=== PATIENT | male | born 1960 | race Caucasian/White ===

== ENCOUNTER 2016-11-04 20:37 | Inpatient (IN) | payer OTHER ==
[2016-11-04] MEDS ORDERED: NORMAL SALINE 1000 ML 1,000 ML IV ONE (21:02)
[2016-11-04] MEDS ORDERED: ONDANSETRON HCL INJ/PF 4 MG/2 ML SDV IV ONE (21:02)
[2016-11-04] MEDS ORDERED: MECLIZINE HCL 25 MG TABLET PO ONE (21:59)
[2016-11-04] MEDS ORDERED: DIAZEPAM INJ 10 MG/2 ML DISP.SYRIN IV ONE (21:59)
--- NOTE | 2016-11-04 22:01 | ER Document Report ---
ED General - General Chief Complaint: Dizziness Stated Complaint: VOMITING,DIZZINESS Time Seen by Provider: 11/04/16 21:01 Notes: Patient is a 56-year-old male without past medical history who presents with acute onset of vertigo. Patient reports that this started at approximately 3 PM while he was golfing. He states that it immediately felt like he was intoxicated, unable to walk a straight line and states he was fell when attempting to walk. He has no history of similar symptoms in the past. States only that seems to even remotely improve his symptoms still lie down and close his eyes but he still feels vertigo during that time. States any attempt at movement or opening his eyes worsens the symptoms. He denies any headache, neck pain, weakness, numbness, or altered mental status. Does not use any form of medication and denies any alcohol or drug use today. He is visiting from out of town has been unable to see his primary care doctor regarding today's concerns. - Related Data Allergies/Adverse Reactions: No Known Allergies Allergy (Unverified 11/04/16 20:41) Past Medical History - General Information source: Patient - Social History Smoking Status: Never Smoker Frequency of alcohol use: None Drug Abuse: None Lives with: Spouse/Significant other Family History: Reviewed & Not Pertinent Renal/ Medical History: Denies: Hx Peritoneal Dialysis Review of Systems - Review of Systems Notes: Constitutional: Negative for fever. HENT: Negative for sore throat. Eyes: Negative for visual changes. Cardiovascular: Negative for chest pain. Respiratory: Negative for shortness of breath. Gastrointestinal: Positive for vomiting Genitourinary: Negative for dysuria. Musculoskeletal: Negative for back pain. Skin: Negative for rash. Neurological: Positive for vertigo 10 point ROS negative except as marked above and in HPI. Physical Exam - Vital signs Vitals: Resp 18 11/04/16 21:05 Interpretation: Normal Notes: PHYSICAL EXAMINATION: GENERAL: Appears uncomfortable but no acute distress HEAD: Atraumatic, normocephalic. EYES: Pupils equal round and reactive to light, extraocular movements intact, sclera anicteric, conjunctiva are normal. ENT: nares patent, oropharynx clear without exudates. Moist mucous membranes. NECK: Normal range of motion, supple without lymphadenopathy LUNGS: Breath sounds clear to auscultation bilaterally and equal. No wheezes rales or rhonchi. HEART: Regular rate and rhythm without murmurs ABDOMEN: Soft, nontender, normoactive bowel sounds. No guarding, no rebound. No masses appreciated. EXTREMITIES: Normal range of motion, no pitting or edema. No cyanosis. NEUROLOGICAL: Face symmetric. Tongue protrudes midline. Extraocular motions intact. No nystagmus. Head impulse testing is normal. Test of skew normal. Pupils are 2 mm and equally reactive. Normal speech, very unsteady gait. 5 out of 5 strength in both the distal and proximal upper and lower extremities bilaterally. Sensation is grossly intact throughout. Finger to nose testing normal. Pronator drift normal. PSYCH: Normal mood, normal affect. SKIN: Warm, Dry, normal turgor, no rashes or lesions noted. Course - Re-evaluation Re-evalutation: 11/04/16 22:00 Presentation of vertigo that appears concerning for a possible cerebellar stroke. Although patient's finger to nose and heel to lester testing is normal he has a very ataxic gait, unable to ambulate in a straight line and almost fell during ambulation testing and would have done so had a not been holding him. His HEENT exam likewise does not show any abnormality during head impulse testing which is again concerning for possible cerebellar stroke. He has no significant clinical history to suggest Mnire's disease, an acute vestibular neuritis, has not had any improvement with meclizine on low-dose Valium. I do think the patient needs an MRI to further evaluate. I will consult with neurology at [facility] and see if they think it is reasonable to wait until the morning to obtain MRI here at this hospital 11/05/16 00:16 I spoke with the neurologist on-call at [facility] who states that there is no acute management difference between obtaining an MRI at this time in transfer versus waiting until the morning. He has recommended routine stroke management. I discussed with Dr. Ramírez who is in agreement. The patient is comfortable with this plan. - Vital Signs Vital signs: Temp Pulse Resp BP Pulse Ox 75 16 145/78 H 98 11/05/16 00:18 11/05/16 00:18 11/05/16 00:18 11/05/16 00:18 - Laboratory Result Diagrams: 11/04/16 22:18 11/04/16 22:18 Laboratory results interpreted by me: 11/04/16 11/04/16 22:18 22:18 MCH 33.7 H MCHC 36.6 H Glucose 115 H - Diagnostic Test Radiology reviewed: Image reviewed, Reports reviewed Radiology results interpreted by me: 11/05/16 02:36 CT head: No acute intercranial bleed - EKG Interpretation by Me Additional EKG results interpreted by me: 11/05/16 02:36 Normal sinus rhythm. Rate 67. No ST elevations or depressions. QTC is 418. Discharge - Discharge Clinical Impression: Vertigo Nausea and vomiting Qualifiers: Vomiting type: unspecified Vomiting Intractability: non-intractable Qualified Code(s): R11.2 - Nausea with vomiting, unspecified Condition: Fair Disposition: ADMITTED OBSERVATION Admitting Provider: Hospitalist [facility] Admitted: [facility]
[2016-11-04 22:33] LABS: ABSOLUTE BASOPHILS # (AUTO) 0.1 10^3/uL (0.0-0.2); ABSOLUTE EOSINOPHILS # (AUTO) 0.1 10^3/uL (0.0-0.6); ABSOLUTE MONOCYTES (AUTO) 0.8 10^3/uL (0.1-1.4); ABSOLUTE NEUT (AUTO) 5.9 10^3/uL (1.7-8.2); BASOPHILS % (AUTO) 0.7 % (0-2); EOSINOPHILS % (AUTO) 1.5 % (0-6); HEMATOCRIT 43.2 % (37.9-51.0); HEMOGLOBIN 15.8 g/dL (13.5-17.0); LYMPHOCYTES % (AUTO) 22.6 % (13-45); MEAN CORPUSCULAR HEMOGLOBIN 33.7 pg (27.0-33.4); MEAN CORPUSCULAR HGB CONC 36.6 g/dL (32.0-36.0); MEAN CORPUSCULAR VOLUME 92 fl (80-97); MONOCYTES % (AUTO) 8.5 % (3-13); RED BLOOD COUNT 4.69 10^6/uL (4.35-5.55); RED CELL DISTRIBUTION WIDTH 12.4 % (11.5-14.0); SEGMENTED NEUTROPHILS % (AUTO) 66.7 % (42-78); WHITE BLOOD COUNT 8.9 10^3/uL (4.0-10.5)
[2016-11-04 22:49] LABS: ANION GAP 10 (5-19); BLOOD UREA NITROGEN 14 mg/dL (7-20); CALCIUM 9.7 mg/dL (8.4-10.2); CARBON DIOXIDE 23 mmol/L (22-30); CHLORIDE 107 mmol/L (98-107); CREATININE RESULT 0.79 mg/dL (0.52-1.25); GLUCOSE 115 mg/dL (75-110); HGB HCT DIFFERENCE 4.2; POTASSIUM 3.8 mmol/L (3.6-5.0)
[2016-11-05] MEDS ORDERED: ASPIRIN 81 MG TABLET, CHEWABLE PO ONE (00:17)
[2016-11-05] MEDS ORDERED: ATORVASTATIN CALCIUM 80 MG TABLET PO ONE (00:17)
--- NOTE | 2016-11-05 02:31 | RADIOLOGY REPORT (SQ) ---
EXAM DESCRIPTION: CT HEAD WITHOUT COMPLETED DATE/TIME: 11/05/2016 2:16 am REASON FOR STUDY: ataxia , dizzy and nausea since noon. COMPARISON: None. TECHNIQUE: Axial images acquired through the brain without intravenous contrast. Images reviewed wi th bone, brain and subdural windows. Images stored on PACS. All CT scanners at this facility use dose modulation, iterative reconstruction, and/or weight based d osing when appropriate to reduce radiation dose to as low as reasonably achievable (ALARA). [facility]: Dose Right [facility]: CareDose [facility]: Dose Right [facility]: Teradose 4D [facility]: PresenceLearning RADIATION DOSE: Up-to-date CT equipment and radiation dose reduction techniques were employed. CTDIv ol: 64.6 mGy. DLP: 1163 mGy-cm. mGy. LIMITATIONS: None. FINDINGS: VENTRICLES: Normal size and contour. CEREBRUM: No mass effect. No hemorrhage. No midline shift. No evidence for acute infarction. Cindi l murcia/white matter differentiation. CEREBELLUM: No mass effect. No hemorrhage. No alteration of density. No evidence for acute infarct ion. EXTRAAXIAL SPACES: No fluid collections. ORBITS AND GLOBE: Symmetrical contour of the globes. CALVARIUM: No depressed fracture. PARANASAL SINUSES: Mild mucosal thickening in the bilateral maxillary sinuses. SOFT TISSUES: No hematoma. IMPRESSION: NO ACUTE INTRACRANIAL IMAGING FINDINGS. EVIDENCE OF ACUTE STROKE: NO. COMMENT: Quality ID # [id number]: Final reports with documentation of one or more dose reduction techniques (e.g., Automated exposure control, adjustment of the mA and/or kV according to patient size, use of iterative reconstruction technique) TECHNICAL DOCUMENTATION: JOB ID: [id number] [employer]- All Rights Reserved
[2016-11-05 05:27] LABS: ABSOLUTE BASOPHILS # (AUTO) 0.1 10^3/uL (0.0-0.2); ABSOLUTE EOSINOPHILS # (AUTO) 0.2 10^3/uL (0.0-0.6); ABSOLUTE LYMPHOCYTES (AUTO) 2.5 10^3/uL (0.5-4.7); ABSOLUTE MONOCYTES (AUTO) 0.7 10^3/uL (0.1-1.4); EOSINOPHILS % (AUTO) 2.6 % (0-6); HEMATOCRIT 41.4 % (37.9-51.0); HGB HCT DIFFERENCE 3.6; LYMPHOCYTES % (AUTO) 33.5 % (13-45); MEAN CORPUSCULAR HEMOGLOBIN 33.8 pg (27.0-33.4); MEAN CORPUSCULAR HGB CONC 36.3 g/dL (32.0-36.0); MEAN CORPUSCULAR VOLUME 93 fl (80-97); MONOCYTES % (AUTO) 9.3 % (3-13); RED BLOOD COUNT 4.46 10^6/uL (4.35-5.55); RED CELL DISTRIBUTION WIDTH 12.7 % (11.5-14.0); SEGMENTED NEUTROPHILS % (AUTO) 53.6 % (42-78); WHITE BLOOD COUNT 7.4 10^3/uL (4.0-10.5)
[2016-11-05 05:43] LABS: CHOLESTEROL 170.55 mg/dL (0-200); Direct HDL 39 mg/dL (>40); TRIGLYCERIDES 154 mg/dL (<150)
[2016-11-05] MEDS: HEPARIN SOD (PORCINE) 5,000 UNIT/ML 1 ML SYRINGE SUBCUT SCH ×2 (05:44→13:57)
[2016-11-05 05:54] LABS: DIRECT LDL 98 mg/dL (<100)
[2016-11-05 05:58] LABS: VLDL CHOLESTEROL 30.8 mg/dL (10-31)
--- NOTE | 2016-11-05 07:18 | PDOC H&P ---
History of Present Illness Admission Date/PCP: 11/05/16 00:18 Patient complains of: Dizziness nausea and vomiting History of Present Illness: MARY ELLEN GLOVER is a 56 year old male without past medical history whose presenting with an acute onset of vertigo occurring while golfing. He denied palpitations, headache, difficulty with speech, focal weakness but disequilibrium. He denies previous episode he denies changes in medications. In the emergency room he has entirely unremarkable workup but unable to ambulate without falling. Neurology in [place] is consulted by the emergency room provider recommending admission for evaluation of cerebellar CVA. He started on aspirin and referred to the hospital for admission. Past Surgical History Past Surgical History: Reports: Tonsillectomy Social History Information Source: Patient Lives with: Spouse/Significant other Smoking Status: Former Smoker Last Time Smoked: 20 years ago Frequency of Alcohol Use: Heavy Hx Recreational Drug Use: No Drugs: None Hx Prescription Drug Abuse: No - Advance Directive Resuscitation Status: Full Code Family History Family History: CVA Parental Family History Reviewed: Yes Children Family History Reviewed: Yes Sibling(s) Family History Reviewed.: Yes Medication/Allergy Home Medications: No Home Medications 11/05/16 Allergies/Adverse Reactions: No Known Allergies Allergy (Unverified 11/04/16 20:41) Review of Systems Constitutional: ABSENT: chills, fever(s), headache(s), weight gain, weight loss Eyes: ABSENT: visual disturbances Ears: ABSENT: hearing changes Cardiovascular: ABSENT: chest pain, dyspnea on exertion, edema, orthropnea, palpitations Respiratory: ABSENT: cough, hemoptysis Gastrointestinal: ABSENT: abdominal pain, constipation, diarrhea, hematemesis, hematochezia, nausea, vomiting Genitourinary: ABSENT: dysuria, hematuria Musculoskeletal: ABSENT: joint swelling Integumentary: ABSENT: rash, wounds Neurological: ABSENT: abnormal gait, abnormal speech, confusion, dizziness, focal weakness, syncope Psychiatric: ABSENT: anxiety, depression, homidical ideation, suicidal ideation Endocrine: ABSENT: cold intolerance, heat intolerance, polydipsia, polyuria Hematologic/Lymphatic: ABSENT: easy bleeding, easy bruising Physical Exam Vital Signs: Temp Pulse Resp BP Pulse Ox 97.7 F 65 15 136/62 H 98 11/05/16 02:58 11/05/16 04:00 11/05/16 04:00 11/05/16 04:00 11/05/16 04:00 Intake & Output 11/03/16 11/04/16 11/05/16 11:59 11:59 11:59 Intake Total 3 Balance 3 Weight 91 kg General appearance: PRESENT: no acute distress, well-developed, well-nourished Head exam: PRESENT: atraumatic, normocephalic Eye exam: PRESENT: conjunctiva pink, EOMI, nystagmus, PERRLA. ABSENT: scleral icterus Ear exam: PRESENT: normal external ear exam Mouth exam: PRESENT: moist, tongue midline Neck exam: ABSENT: carotid bruit, JVD, lymphadenopathy, thyromegaly Respiratory exam: PRESENT: clear to auscultation juana. ABSENT: rales, rhonchi, wheezes Cardiovascular exam: PRESENT: RRR. ABSENT: diastolic murmur, rubs, systolic murmur Pulses: PRESENT: normal dorsalis pedis pul Vascular exam: PRESENT: normal capillary refill GI/Abdominal exam: PRESENT: normal bowel sounds, soft. ABSENT: distended, guarding, mass, organolmegaly, rebound, tenderness Rectal exam: PRESENT: deferred Extremities exam: PRESENT: full ROM. ABSENT: calf tenderness, clubbing, pedal edema Neurological exam: PRESENT: alert, awake, oriented to person, oriented to place , oriented to time, oriented to situation, CN II-XII grossly intact. ABSENT: motor sensory deficit, normal gait, aphasic Psychiatric exam: PRESENT: appropriate affect, normal mood. ABSENT: homicidal ideation, suicidal ideation Skin exam: PRESENT: dry, intact, warm. ABSENT: cyanosis, rash Results Laboratory Results: 11/05/16 05:14 11/05/16 11/05/16 05:14 05:14 WBC 7.4 RBC 4.46 Hgb 15.0 Hct 41.4 MCV 93 MCH 33.8 H MCHC 36.3 H RDW 12.7 Plt Count 168 Seg Neutrophils % 53.6 Lymphocytes % 33.5 Monocytes % 9.3 Eosinophils % 2.6 Basophils % 1.0 Absolute Neutrophils 4.0 Absolute Lymphocytes 2.5 Absolute Monocytes 0.7 Absolute Eosinophils 0.2 Absolute Basophils 0.1 Triglycerides 154 H Cholesterol 170.55 LDL Cholesterol Direct 98 VLDL Cholesterol 30.8 HDL Cholesterol 39 L Impressions: Head CT 11/05/16 01:53 IMPRESSION: NO ACUTE INTRACRANIAL IMAGING FINDINGS. EVIDENCE OF ACUTE STROKE: NO. Assessment & Plan - Diagnosis (1) Ataxia Is this a current diagnosis for this admission?: Yes Plan: Physical exam suggests central vertigo, symptomatic management and CVA workup. (2) CVA (cerebral vascular accident) Is this a current diagnosis for this admission?: Yes Plan: Concern for cerebellar CVA, symptomatic management CVA care set initiated, permissive hypertension, aspirin and Lipitor follow-up MRI and carotid Doppler. - Time Time Spent: 30 to 50 Minutes - Inpatient Certification Medical Necessity: Need Close Monitoring Due to Risk of Patient Decompensation
--- NOTE | 2016-11-05 10:18 | RADIOLOGY REPORT (SQ) ---
EXAM DESCRIPTION: MRA HEAD WITHOUT COMPLETED DATE/TIME: 11/05/2016 8:59 am REASON FOR STUDY: ataxia COMPARISON: None. TECHNIQUE: Axial 3-D [id number] acquisition imaging performed through the brain in the area of t he [place]. Images reformatted using 3-D MIPS. LIMITATIONS: None. FINDINGS: SOURCE IMAGES: No unexpected findings on source images. No large masses. 3-D MIP: No aneurysm. No occlusions. No significant stenosis. OTHER: No other significant finding. IMPRESSION: NORMAL MRA OF THE [place]. TECHNICAL DOCUMENTATION: JOB ID: [id number] [employer]- All Rights Reserved
--- NOTE | 2016-11-05 10:29 | RADIOLOGY REPORT (SQ) ---
EXAM DESCRIPTION: MRI HEAD WITHOUT COMPLETED DATE/TIME: 11/05/2016 9:00 am REASON FOR STUDY: ataxia COMPARISON: None. TECHNIQUE: Multiplanar imaging includes non-contrasted T1, T2, FLAIR, and diffusion with ADC map seq uences. Images stored on PACS. LIMITATIONS: None. FINDINGS: ANATOMY: No anomalies. Normal vascular flow voids. Pituitary fossa normal. CSF SPACES: Normal in size and contour. No hemorrhage. CEREBRUM: Sulci and gyri normal in size and contour. Normal white matter signal on FLAIR imaging. No evidence of hemorrhage, mass, or extraaxial fluid collection. POSTERIOR FOSSA: No signal alteration. No hemorrhage. No edema, masses or mass effect. Internal staci tory canals, cerebello-pontine angles, mastoids normal. DIFFUSION IMAGING: Negative for acute or sub-acute infarction. ORBITS: No masses. Globes normal. PARANASAL SINUSES: No fluid levels. OTHER: No other significant finding. IMPRESSION: Normal brain. EVIDENCE OF ACUTE STROKE: NO. TECHNICAL DOCUMENTATION: JOB ID: [id number] [employer]- All Rights Reserved
[2016-11-05] MEDS ORDERED: INFLUENZA ADLT QUAD (36MOS+) 2017-18 VAC 0.5 ML SYR IM PRN (11:54)
--- NOTE | 2016-11-05 13:02 | EKG REPORT ---
SEVERITY:- NORMAL ECG - SINUS RHYTHM : Confirmed by: Pete Degroot 05-Nov-2016 13:01:41
--- NOTE | 2016-11-05 16:14 | RADIOLOGY REPORT (SQ) ---
EXAM DESCRIPTION: CAROTID DOPPLER COMPLETED DATE/TIME: 11/05/2016 4:05 pm REASON FOR STUDY: acute neurologic syndrome COMPARISON: MRI brain 11/05/2016 CT brain 11/05/2016 TECHNIQUE: Grayscale ultrasound, Doppler velocity and spectra, and color Doppler images acquired of the extra-cranial carotid and vertebral arteries. Images stored on PACS. LIMITATIONS: None. FINDINGS: RIGHT CAROTID CCA Velocities: Within normal limits. ICA Velocities Peak systolic 0.75 m/s. End diastolic 0.22 m/s. Proximal ICA/CCA peak systolic ratio 0.9. Spectra normal. No significant plaque. LEFT CAROTID CCA Velocities: Within normal limits. ICA Velocities Peak systolic 0.80 m/s. End diastolic 0.28 m/s. Proximal ICA/CCA peak systolic ratio 0.8. Spectra normal. No significant plaque. VERTEBRAL ARTERIES: Antegrade flow. Normal waveforms. SUBCLAVIAN ARTERIES: Not evaluated OTHER: No other significant finding. IMPRESSION: NO HEMODYNAMICALLY SIGNIFICANT STENOSIS. COMMENT: Quality ID #[id number]: Velocity criteria are extrapolated from the diameter data as defined by t he Society of Radiologists in Ultrasound Consensus Conference. Radiology 2003: 229; 340-346. TECHNICAL DOCUMENTATION: JOB ID: [id number] [employer]- All Rights Reserved
--- NOTE | 2016-11-05 16:19 | XCELERA REPORT ---
[address] [address] Transthoracic Echocardiogram Report Name: MARY ELLEN GLOVER Age: 56 yrs Gender: Male : 1960 Patient Status: Inpatient Patient Location: [address] [place], [place] [id number] Study Date: 11/05/2016 03:05 PM Height: 70 in Weight: 200 lb BSA: 2.1 m2 Procedure: A two-dimensional transthoracic echocardiogram with color flow and Doppler was performed. Study Quality: Fair. Reason For Study: CVA History: CVA. Ordering Physician: CATIE AVENDAÑO Performed By: Milind Whitlock Interpretation Summary There is no obvious cardiac source of embolus noted on this transthoracic echocardiogram. Follow-up with a RAY is suggested if cardiac source is still suspected. The left ventricle is normal in size. There is normal left ventricular wall thickness. LV EF is 65% Left ventricular systolic function is normal. Doppler measurements suggest impaired left ventricular relaxation, which is associated with grade I/IV or mild diastolic dysfunction The left ventricular wall motion is normal. There is no thrombus. There is no ventricular septal defect visualized. The right ventricle is normal in size and function. The right atrium is normal. The left atrial size is normal. The interatrial septum is intact with no evidence for an atrial septal defect. There is no evidence of mitral valve prolapse. There is no vegetation seen on the mitral valve. There is no mitral valve stenosis. There is a mild amount of mitral regurgitation The aortic valve is trileaflet. The aortic valve opens well. There is no aortic valvular vegetation. No AV jet obtained but visually no Aortic Stenosis There is a mild amount of aortic regurgitation There is no tricuspid stenosis. There is a mild amount of tricuspid regurgitation Mild Pulmonary Hypertension.RVSP is 34 mm of Hg , with RA mean of 10. There is no pulmonic valvular stenosis. There is a trace amount of pulmonic regurgitation There is no pericardial effusion. There is no obvious cardiac source of embolus noted on this transthoracic echocardiogram. Follow-up with a RAY is suggested if cardiac source is still suspected MMode/2D Measurements & Calculations RVDd: 2.7 cm LVIDd: 5.0 cm FS: 37.1 % Ao root diam: 3.2 cm IVSd: 1.1 cm LVIDs: 3.1 cm EDV(Teich): 117.5 ml LVPWd: 1.1 cm ESV(Teich): 39.0 ml Ao root area: 8.3 cm2 EF(Teich): 66.8 % LA dimension: 3.5 cm Doppler Measurements & Calculations MV E max ariela: MV P1/2t max ariela: AI max ariela: PA V2 max: 54.5 cm/sec 56.2 cm/sec 510.9 cm/sec 63.2 cm/sec MV A max ariela: MV P1/2t: 79.8 msec AI max PG: PA max P.9 cm/sec 104.4 mmHg 1.6 mmHg MV E/A: 0.80 MVA(P1/2t): 2.8 cm2 AI dec slope: MV dec slope: 206.2 cm/sec2 229.6 cm/sec2 AI P1/2t: 651.8 msec PI end-d ariela: TR max ariela: RAP systole: 117.3 cm/sec 245.3 cm/sec 10.0 mmHg TR max P.2 mmHg RVSP(TR): 34.2 mmHg Left Ventricle The left ventricle is normal in size. There is normal left ventricular wall thickness. LV EF is 65%. Left ventricular systolic function is normal. Doppler measurements suggest impaired left ventricular relaxation, which is associated with grade I/IV or mild diastolic dysfunction. The left ventricular wall motion is normal. There is no thrombus. There is no ventricular septal defect visualized. Right Ventricle The right ventricle is normal in size and function. Atria The right atrium is normal. The left atrial size is normal. The interatrial septum is intact with no evidence for an atrial septal defect. Mitral Valve There is no evidence of mitral valve prolapse. There is no vegetation seen on the mitral valve. There is no mitral valve stenosis. There is a mild amount of mitral regurgitation. Aortic Valve The aortic valve is trileaflet. The aortic valve opens well. There is no aortic valvular vegetation. No AV jet obtained but visually no Aortic Stenosis. There is a mild amount of aortic regurgitation. Tricuspid Valve There is no tricuspid stenosis. There is a mild amount of tricuspid regurgitation. Mild Pulmonary Hypertension.RVSP is 34 mm of Hg , with RA mean of 10. Pulmonic Valve There is no pulmonic valvular stenosis. There is a trace amount of pulmonic regurgitation. Great Vessels The aortic root is normal size. Effusions There is no pericardial effusion. : CATIE AVENDAÑO > Jeimy Palomares
--- NOTE | 2016-11-05 17:04 | PDOC DISCHARGE SUMMARY ---
General - Admit/Disc Date/PCP Admission Date/Primary Care Provider: 11/05/16 00:18 Discharge Date: 11/05/16 - Discharge Diagnosis (1) Acute vestibular neuritis Is this a current diagnosis for this admission?: Yes (2) Ataxia Is this a current diagnosis for this admission?: Yes (3) Nausea and vomiting Is this a current diagnosis for this admission?: Yes (4) Vertigo Is this a current diagnosis for this admission?: Yes - Additional Information Resuscitation Status: Full Code Discharge Diet: Regular Discharge Activity: No Driving, Slowly Increase Activity Home Medications: Prednisone [Deltasone 20 mg Tablet] 60 mg PO DAILY 10 Days #30 tablet 11/05/16 History of Present Illness History of Present Illness: MARY ELLEN GLOVER is a 56 year old male without past medical history whose presenting with an acute onset of vertigo occurring while golfing. He denied palpitations, headache, difficulty with speech, focal weakness but disequilibrium. He denies previous episode he denies changes in medications. In the emergency room he has entirely unremarkable workup but unable to ambulate without falling. Neurology in [place] is consulted by the emergency room provider recommending admission for evaluation of cerebellar CVA. He started on aspirin and referred to the hospital for admission. Hospital Course Hospital Course: The patient was admitted to the hospital for acute ataxia associated with nausea and vomiting. He was initiated on aspirin and atorvastatin for presumed stroke. The patient had an unremarkable head CT. This was followed with an MRI and MRA which was normal. The patient's echocardiogram showed an ejection fraction of 65%. There was no obvious cardiac source of embolus noted. Mild diastolic dysfunction was noted. Mild mitral regurgitation was noted. Mild tricuspid regurgitation was noted. Carotid Dopplers were negative for hemodynamically significant stenosis. After the patient's stroke evaluation was noted to be essentially negative his diagnosis appears to be most consistent with acute vestibular neuritis. The patient is improving. He no longer has significant nausea and vomiting. His ataxia is also significantly improved although he still complains of dizziness. The patient feels stable for discharge. His will accompany him home. He was instructed not to drive until released by his primary care doctor. He agrees to call his primary care doctor in the morning to make a follow-up appointment. I have also recommended that he be seen by an ENT physician this week. The patient will be released on a prescription of prednisone. Corticosteroids are noted to decrease the duration of symptoms. I have filled release him on a short duration of steroids. If his primary care doctor and/or the ENT physician feel that this should be continued and tapered I will leave that up to them. Physical Exam Vital Signs: Temp Pulse Resp BP Pulse Ox 98.6 F 83 16 139/82 H 96 11/05/16 16:23 11/05/16 16:23 11/05/16 16:23 11/05/16 16:23 11/05/16 16:23 Intake & Output 11/04/16 11/05/16 11/06/16 06:59 06:59 06:59 Intake Total 3 118 Balance 3 118 Weight 91 kg Additional comments: The patient's physical exam at this time is relatively unremarkable. His facial appearance is normal. His lips and mucous membranes are moist. I do not appreciate nystagmus. The patient's cardiac exam demonstrates a regular rate and rhythm without murmurs, gallops or rubs. The lungs are clear to auscultation bilaterally. The abdomen is soft and flat. Bowel sounds are present. There is no guarding or rebound noted and there are no hernias or masses noted. Patient is moving all 4 extremities. He is able to ambulate without assistance. Results Laboratory Results: 11/05/16 05:14 11/05/16 11/05/16 05:14 05:14 WBC 7.4 RBC 4.46 Hgb 15.0 Hct 41.4 MCV 93 MCH 33.8 H MCHC 36.3 H RDW 12.7 Plt Count 168 Seg Neutrophils % 53.6 Lymphocytes % 33.5 Monocytes % 9.3 Eosinophils % 2.6 Basophils % 1.0 Absolute Neutrophils 4.0 Absolute Lymphocytes 2.5 Absolute Monocytes 0.7 Absolute Eosinophils 0.2 Absolute Basophils 0.1 Triglycerides 154 H Cholesterol 170.55 LDL Cholesterol Direct 98 VLDL Cholesterol 30.8 HDL Cholesterol 39 L Impressions: Head MRI 11/05/16 00:00 IMPRESSION: Normal brain. EVIDENCE OF ACUTE STROKE: NO. Brain MRI with MRA 11/05/16 00:20 IMPRESSION: NORMAL MRA OF [place]. Head CT 11/05/16 01:53 IMPRESSION: NO ACUTE INTRACRANIAL IMAGING FINDINGS. EVIDENCE OF ACUTE STROKE: NO. Carotid Doppler Study 11/05/16 13:06 IMPRESSION: NO HEMODYNAMICALLY SIGNIFICANT STENOSIS. Qualifiers PATEINT BEING DISCHARGED WITH ANY OF THE FOLLOWING DIAGNOSIS?: No Plan Discharge Plan: The patient will be released. His will be driving him back to his home which is in [place]. He was instructed not to drive or operate heavy machinery. The patient will follow up with his primary care doctor this week. It is also recommended that he see an ENT provider this week. Again, he is going to be released on a 10 day course of corticosteroids. Continuation and tapering of corticosteroids will be at the discretion of the patient's primary care doctor and/or ENT physician. Time Spent: Less than 30 Minutes
[2016-11-05 17:24] VITALS: BP 137/81
[2016-11-05] MEDS ORDERED: ATORVASTATIN CALCIUM 40 MG TABLET PO SCH (22:00)
[2016-11-06] MEDS ORDERED: PREDNISONE 20 MG TABLET PO SCH (10:00)
[2016-11-06] MEDS ORDERED: ASPIRIN 325 MG TABLET, ENT COATED PO SCH (10:00)
== END 2016-11-05 17:30 | disposition home or self-care (01) | DRG 156 ==
LOC: EDBD 20:37 → ER 20:37 → OBSVTOIN 11-05 00:18 → EH 11-05 00:18 → UNDOADMOB 11-05 00:24 → EH 11-05 00:24 → 3N 11-05 02:56
PROVIDERS: ADMIT Internal Medicine; ATTEND Internal Medicine
DX: H93.3X9 Disorders of unspecified acoustic nerve (principal); R27.0 Ataxia, unspecified; R11.2 Nausea with vomiting, unspecified; Z87.891 Personal history of nicotine dependence
CPT/HCPCS: 36415; 70450; 70544; 70551; 80048; 80061; 83036; 84484; 85025; 85652; 90686; 93005; 93010; 93306; 93880; 96361; 96374; 96375; 99285; J1644; J2405; J3360; J3490; J7030